=== PATIENT | male | born 1980 | race Caucasian/White ===

== ENCOUNTER 2018-05-17 08:14 | Day surgery (SDC) | payer MEDICAID ==
[2018-05-17] MEDS ORDERED: LIDOCAINE 2% MDV (20MG/ML) 20ML VIAL IV ONE (08:15)
[2018-05-17] MEDS ORDERED: PROPOFOL 10 MG/ML VIAL IV ONE (08:15)
--- NOTE | 2018-05-18 09:20 | Operative Note ---
DATE OF SURGERY: 05/17/2018 OPERATION: ESOPHAGOGASTRODUODENOSCOPY with multiple biopsies. INDICATION: History of Pike's esophagus. The patient returns at this time after 3 years for surveillance. Clinically, he is well controlled with the use of Nexium taken once daily in the morning. I did not have access to his previous medical record, as there was a computer issue this morning at the hospital. ANESTHESIA: Intravenous sedation was administered by the department of anesthesiology and included Diprivan titrated to effect. PROCEDURE: Following informed consent from this alert individual, including a discussion of the risks and benefits of the procedure and an opportunity for the patient to ask questions, the patient was in the left lateral decubitus position. The Olympus GMR477 video endoscope was inserted into the esophagus without resistance. The proximal esophagus had a normal appearance with normal folds and distensibility. The mid esophagus likewise was free from changes. The distal esophageal segment demonstrated short-segment Pike's esophagus with irregular Z-line extending 1-2 cm above a small sliding-type hiatal hernia. There were no ulcerations or erosions noted. No other mucosal changes appreciated. The mucosa was smooth. Biopsies were taken from the Pike's epithelium to evaluate microscopically. The gastric mucosa throughout appeared to be unremarkable. Pylorus was patent. The duodenal bulb, sweep and descending duodenum were examined in a serial fashion and found to be normal. The endoscope was then withdrawn back into the body of the stomach, where retroflexion accomplished following air insufflation failed to demonstrate any additional changes. The endoscope was then straightened and withdrawn through the distal esophagus where, as mentioned, biopsies were taken from throughout the Pike's appearing epithelium. After biopsy, endoscope was then drawn back through a normal mid and proximal esophagus and removed from the patient. He tolerated the procedure well and was returned to the recovery area in stable condition. IMPRESSION: 1. A small sliding-type hiatal hernia. 2. Short-segment Pike's esophagus as described above, biopsies taken. RECOMMENDATION: Further recommendations will be forthcoming pending results of pathology obtained today. The patient will be maintained on acid blockade therapy each morning in the form of Nexium. Followup will be with Elida Mcfarlane. As always, thank you for allowing me to participate in the care of your patient. CC: LOIS Finney
== END 2018-05-17 10:10 | disposition home or self-care (01) ==
LOC: HOP 08:14
PROVIDERS: ATTEND Internal Medicine Gastroenterology
DX: K21.0 Gastro-esophageal reflux disease with esophagitis (principal); K22.70 Barrett's esophagus without dysplasia; K31.89 Other diseases of stomach and duodenum; K44.9 Diaphragmatic hernia without obstruction or gangrene

== ENCOUNTER 2019-04-11 07:24 | Day surgery (SDC) | payer MEDICAID ==
[~2019-04-11 07:24] MED LIST: ACETAMINOPHEN 1,000 MG/100 ML BTL IVPB ONE; CLINDAMYCIN 600MG/50ML PREMIX 600 MG/50 ML BAG IVPB ONE; FAMOTIDINE 20MG TABLET PO ONE; MECLIZINE 25 MG TABLET PO ONE; METOCLOPRAMIDE 10 MG TABLET PO ONE
[2019-04-11] MEDS ORDERED: FENTANYL PF 100MCG/2ML VIAL IV ONE (07:25)
[2019-04-11] MEDS ORDERED: ROCURONIUM BROMIDE 50MG/5ML VIAL IV ONE (07:25)
[2019-04-11] MEDS ORDERED: LIDOCAINE 2% MDV (20MG/ML) 20ML VIAL IV ONE (07:25)
[2019-04-11] MEDS ORDERED: SEVOFLURANE 250 ML INH ONE (07:25)
[2019-04-11] MEDS ORDERED: GLYCOPYRROLATE 0.2 MG/ML ML IV ONE (07:25)
[2019-04-11] MEDS ORDERED: ONDANSETRON HCL IV 4 MG/2 ML VIAL IVP ONE (07:25)
[2019-04-11] MEDS ORDERED: PROPOFOL 10 MG/ML VIAL IV ONE (07:25)
[2019-04-11] MEDS ORDERED: MIDAZOLAM HCL 2MG/2ML VIAL IV ONE (07:25)
[2019-04-11] MEDS ORDERED: KETOROLAC 30 MG/ML VIAL IVP ONE (07:25)
[2019-04-11] MEDS ORDERED: SUCCINYLCHOLINE 20 MG/ML 10ML IVP ONE (07:25)
[2019-04-11] MEDS ORDERED: NEOSTIGMINE 1 MG/1 ML,10ML VIAL IV ONE (07:25)
[2019-04-11 07:39] LABS: BASO % 0.3 % (0-6); EOS % 4.3 % (0-6); GRAN % 66.5 % (47-80); HEMATOCRIT 48.8 % (42.0-52.0); HEMOGLOBIN 16.8 gm/dl (14.0-18.0); LYMPH % 19.9 % (16-45); MEAN CELL VOLUME 91.2 fl (81-97); MEAN CORPUSCULAR HEMOGLOBIN 31.4 pg (27-33); MEAN CORPUSCULAR HGB CONC 34.4 g/dl (32-36); MEAN PLATELET VOLUME 9.9 fl (7.4-10.4); PLATELET COUNT 261 K/uL (130-400); RED BLOOD COUNT 5.35 M/uL (4.40-5.70)
[2019-04-11] MEDS ORDERED: RINGERS SOLUTION,LACTATED 1,000 ML IV ONE (08:03)
[2019-04-11] MEDS ORDERED: BUPIVACAINE 0.25% W/EPI MPF 30ML VIAL SQ ONE (09:46)
[2019-04-11] MEDS ORDERED: HYDROCODONE/APAP 5/325MG TABLET PO ONE (10:29)
[2019-04-11] MEDS ORDERED: ROPIVACAINE HCL (NAROPIN) /PF 5MG/ML 20ML VIAL IV ONE (13:42)
[2019-04-11] MEDS ORDERED: DEXAMETHASONE 4 MG/ML 1ML VIAL IVP ONE (13:42)
--- NOTE | 2019-04-12 06:30 | Operative Note ---
DATE OF SURGERY: 04/11/2019 SURGEON: Shaheen Castillo DO PREOPERATIVE DIAGNOSIS: Incarcerated umbilical hernia. POSTOPERATIVE DIAGNOSIS: Incarcerated umbilical hernia. OPERATION: Laparoscopic ventral herniorrhaphy with mesh. INDICATION: The patient is a 39-year-old male who presented with pain and bulging in his periumbilical region. We did discuss operative repair. Risks, benefits, and alternatives were discussed. We also discussed surgical approaches due to him being almost 270 pounds. We did discuss laparoscopic approach where we could have better mesh overlap. Risks include bleeding, infection, acute or chronic pain, recurrence. He understood this fully. PROCEDURE: After consent was signed, questions answered, he was taken to the operating room and placed in a supine position. General anesthesia was administered per the department of anesthesia. The patient 's abdomen was shaved of hair and prepped and draped in the usual sterile fashion. At this time, adequate timeout was performed. He did receive preoperative antibiotic as well as DVT prophylaxis. He also underwent a tap block per the department of anesthesia. At this time, the left upper quadrant region was anesthetized with a total of 2 mL of 0.25% Sensorcaine with epinephrine. A 2 cm left subcostal incision was made. Through this, an 11 mm Visiport was placed. All abdominal layers were traversed under direct visualization. Additional 5 mm right flank and 5 mm left flank ports were then placed. The patient had incarcerated omentum up in the hernia. This was reduced with traction as well as external pressure. I did have to use the JACQUIE Harmonic to take down the falciform ligament up to the clear space near the diaphragm. At this time, using a suture passer and a 2-0 Vicryl, loose skin was tacked to the fascia in order to repair the navel. A [address] mesh was obtained. Four preplaced cardinal stitches were placed on the mesh. This was placed in an intraperitoneal position. The mesh was centered on the hernia. The preplaced stitches were grasped transfascially and held in place. At this time, a tacking device was used to tack the mesh in place in a 360-degree fashion. The inner crown was also placed. The transfascial sutures were loosely tied down. Skin dimpling was released. These were trimmed. The scope was flipped around. There was no bleeding noted. No bowel injury noted. At this time, pneumoperitoneum was released. All ports removed. The fascia was closed with 0 Vicryl in a [id number] fashion. Skin at all 3 ports was closed with 4-0 Vicryl. Dermabond was placed over the navel suture. He was taken to the recovery room in stable condition. MNIA
== END 2019-04-11 10:47 | disposition home or self-care (01) ==
LOC: SUR 07:24
PROVIDERS: ATTEND Surgery
DX: K42.0 Umbilical hernia with obstruction, without gangrene (principal); K22.70 Barrett's esophagus without dysplasia; R05 Cough; F17.210 Nicotine dependence, cigarettes, uncomplicated
CPT/HCPCS: 76942; 85025; C1781; J0330; J1885; J2405; J2710; J7120